=== PATIENT | female | born 1950 | race Caucasian/White ===

== ENCOUNTER 2016-11-13 19:08 | Outpatient (CLI) | payer MEDICARE, OTHER | END 2016-11-13 19:09 | disposition home or self-care (01) | DX: G47.33 Obstructive sleep apnea (adult) (pediatric) (principal); Z68.26 Body mass index [BMI] 26.0-26.9, adult ==

== ENCOUNTER 2016-11-29 10:29 | Outpatient (CLI) | payer MEDICARE, OTHER | END 2016-11-29 10:30 | disposition home or self-care (01) | DX: R91.8 Other nonspecific abnormal finding of lung field (principal); R06.02 Shortness of breath; R05 Cough; R09.89 Other specified symptoms and signs involving the circulatory and respiratory systems ==

== ENCOUNTER 2017-05-04 09:45 | Outpatient (CLI) | payer MEDICARE, OTHER | END 2017-05-04 09:46 | disposition home or self-care (01) | LOC: LAB.R 09:45 | PROVIDERS: ATTEND Physician Assistant Medical | DX: N30.00 Acute cystitis without hematuria (principal) | CPT/HCPCS: 87086 ==

== ENCOUNTER 2017-06-22 08:35 | Outpatient (CLI) | payer MEDICARE, OTHER ==
[2017-06-22 12:52] LABS: BASOPHILS % (AUTO) 0.2 %; EOSINOPHILS # (AUTO) 0.1 10^3/uL (0.0-0.7); EOSINOPHILS % (AUTO) 1.9 %; HCT - HEMATOCRIT 37.7 % (37.0-47.0); HGB - HEMOGLOBIN 12.9 g/dL (12.0-16.0); LYMPHOCYTES # (AUTO) 2.6 10^3/uL (1.5-3.5); LYMPHOCYTES % (AUTO) 50.9 %; MEAN CORPUSCULAR HEMOGLOBIN 29.9 pg (27.0-31.0); MEAN CORPUSCULAR HGB CONC 34.1 g/dL (32.0-36.0); MEAN CORPUSCULAR VOLUME 87.7 fL (81.0-99.0); MEAN PLATELET VOLUME 8.9 fL (7.9-10.8); MONOCYTES # (AUTO) 0.4 10^3/uL (0.0-1.0); MONOCYTES % (AUTO) 7.8 %; NEUTROPHILS % (AUTO) 39.2 %; NUCLEATED RED BLOOD CELLS AUTO 0.1 /100WBC; UNCORRECTED WHITE BLOOD COUNT 5.1 x10^3/uL; WHITE BLOOD COUNT 5.1 x10^3/uL (4.8-10.8)
[2017-06-22 13:03] LABS: ALBUMIN/GLOBULIN RATIO 1.2 (1.0-2.2); BILIRUBIN,TOTAL 0.5 mg/dL (0.2-1.0); BUN - BLOOD UREA NITROGEN 11 mg/dL (6-20); CALCIUM 9.1 mg/dL (8.5-10.3); CARBON DIOXIDE - CO2 26 mmol/L (21-32); CHLORIDE 106 mmol/L (101-111); CHOL/HDL RATIO 3.6 (<4.4); CHOLESTEROL 188 mg/dL; CREATININE 0.8 mg/dL (0.4-1.0); GFR - MDRD 72 (>89); GLUCOSE 114 mg/dL (70-100); HDL CHOLESTEROL 52 mg/dL; LDL/HDL RATIO 2.2 (<4.4); POTASSIUM 3.8 mmol/L (3.5-5.0); SODIUM 141 mmol/L (135-145); TOTAL PROTEIN 7.6 g/dL (6.7-8.2); TRIGLYCERIDES 105 mg/dL; VLDL CHOLESTEROL 21 mg/dL
== END 2017-06-22 08:36 | disposition home or self-care (01) ==
LOC: LAB.R 08:35
PROVIDERS: ATTEND Physician Assistant Medical
DX: E55.9 Vitamin D deficiency, unspecified (principal); K21.9 Gastro-esophageal reflux disease without esophagitis; F32.9 Major depressive disorder, single episode, unspecified; E03.9 Hypothyroidism, unspecified; Z11.59 Encounter for screening for other viral diseases; E78.5 Hyperlipidemia, unspecified; Z72.89 Other problems related to lifestyle; Z79.899 Other long term (current) drug therapy
CPT/HCPCS: 80053; 80061; 82306; 84443; 85025; 86803

== ENCOUNTER 2017-09-12 08:15 | Outpatient (CLI) | payer OTHER ==
[2017-09-12 08:59] LABS: BASOPHILS # (AUTO) 0.1 10^3/uL (0.0-0.1); BASOPHILS % (AUTO) 1.2 %; EOSINOPHILS # (AUTO) 0.1 10^3/uL (0.0-0.7); EOSINOPHILS % (AUTO) 1.8 %; HCT - HEMATOCRIT 37.9 % (37.0-47.0); HGB - HEMOGLOBIN 12.8 g/dL (12.0-16.0); LYMPHOCYTES # (AUTO) 2.4 10^3/uL (1.5-3.5); LYMPHOCYTES % (AUTO) 43.3 %; MEAN CORPUSCULAR HEMOGLOBIN 29.9 pg (27.0-31.0); MEAN CORPUSCULAR HGB CONC 33.7 g/dL (32.0-36.0); MEAN CORPUSCULAR VOLUME 88.6 fL (81.0-99.0); MEAN PLATELET VOLUME 8.1 fL (7.9-10.8); MONOCYTES # (AUTO) 0.5 10^3/uL (0.0-1.0); MONOCYTES % (AUTO) 8.2 %; NEUTROPHILS # (AUTO) 2.6 10^3/uL (1.5-6.6); NEUTROPHILS % (AUTO) 45.5 %; NUCLEATED RED BLOOD CELLS AUTO 0.1 /100WBC; RED BLOOD COUNT 4.28 10^6/uL (4.20-5.40); RED CELL DISTRIBUTION WIDTH 13.3 % (12.0-15.0); UNCORRECTED WHITE BLOOD COUNT 5.7 x10^3/uL; WHITE BLOOD COUNT 5.7 x10^3/uL (4.8-10.8)
[2017-09-12 10:56] LABS: FREE T3 3.11 pg/mL (2.5-3.9)
[2017-09-12 11:05] LABS: THYROID STIMULATING HORMONE 2.38 uIU/mL (0.34-5.60)
[2017-09-12 11:12] LABS: TOTAL T3 1.14 ng/mL (0.87-1.78)
[2017-09-13 11:41] LABS: HOMOCYSTEINE 12.4 umol/L (<10.4)
[2017-09-15 14:47] LABS: ANA SCREEN NEGATIVE (NEGATIVE)
== END 2017-09-12 08:16 | disposition home or self-care (01) ==
LOC: LAB 08:15
DX: F34.1 Dysthymic disorder (principal); Z44.9 Encounter for fitting and adjustment of unspecified external prosthetic device
CPT/HCPCS: 36415; 82306; 82607; 83090; 84403; 84439; 84443; 84480; 84481; 85025; 86038; 86140; 86376; 86800

== ENCOUNTER 2017-12-29 11:31 | Outpatient (CLI) | payer MEDICARE, OTHER ==
--- NOTE | 2018-01-01 10:17 | XRAY Report ---
THREE VIEW LUMBAR SPINE: 12/29/2017 CLINICAL INDICATION: Acute on chronic back pain. COMPARISON: 03/15/2013. FINDINGS: AP, lateral, cone-down views of the lumbar spine demonstrate stable height and alignment of the vertebral bodies. Previous lower lumbar fusion appears unchanged. There is no evidence of acute fracture or subluxation. The bowel gas pattern appears unremarkable. Spinal stimulator and catheter appear stable. IMPRESSION: STABLE APPEARANCE OF THE LUMBAR SPINE, WITH PREVIOUS FUSION. NO EVIDENCE OF ACUTE FRACTURE. TD: 12/29/2017 13:12 [facility]
== END 2017-12-29 11:32 | disposition home or self-care (01) ==
LOC: DI 11:31
PROVIDERS: ATTEND Physician Assistant Medical
DX: M54.5 Low back pain (principal); Z98.1 Arthrodesis status
CPT/HCPCS: 72100

== ENCOUNTER 2018-01-04 08:43 | Outpatient (CLI) | payer MEDICARE, OTHER ==
--- NOTE | 2018-01-05 10:55 | CT Report ---
LUMBAR SPINE CT: 01/04/2018 COMPARISON: No comparison. INDICATION: Lumbar chronic back pain. TECHNIQUE: Noncontrast axial imaging of the lumbar spine with coronal and sagittal reformats. FINDINGS: Spinal stimulator is noted. Alignment: Trace anterolisthesis of L4 upon L5 is favored to be degenerative. There is mild narrowing of the L4-L5 disk space. There is moderate narrowing of the L5-S1 disk space. No evidence of acute fracture. There are moderate degenerative changes of the facets. The bony neural foramina and spinal canal appear widely patent. Right mild to moderate lumbar spondylosis as detailed above. IMPRESSION: MILD TO MODERATE LUMBAR SPONDYLOSIS DETAILED ABOVE. CT DOSE REDUCTION STATEMENT In accordance with CT protocol optimization, one or more of the following dose reduction techniques were utilized for this exam: automated exposure control, adjustment of mA and/or KV based on patient size, or use of iterative reconstructive technique. TD: 01/04/2018 12:27 [facility]ENDRICK
== END 2018-01-04 08:44 | disposition home or self-care (01) ==
LOC: DI 08:43
PROVIDERS: ATTEND Physician Assistant Medical
DX: M47.896 Other spondylosis, lumbar region (principal)
CPT/HCPCS: 72131

== ENCOUNTER 2018-01-10 16:30 | Outpatient (CLI) | payer MEDICARE, OTHER ==
[2018-01-10 18:31] LABS: ALBUMIN 4.1 g/dL (3.2-5.5); ALBUMIN/GLOBULIN RATIO 1.2 (1.0-2.2); BILIRUBIN,TOTAL 0.3 mg/dL (0.2-1.0); CALCIUM 8.8 mg/dL (8.5-10.3); CREATININE 0.9 mg/dL (0.4-1.0); TOTAL PROTEIN 7.4 g/dL (6.7-8.2)
== END 2018-01-10 16:31 | disposition home or self-care (01) ==
LOC: LAB.R 16:30
PROVIDERS: ATTEND Physician Assistant Medical
DX: N39.0 Urinary tract infection, site not specified (principal); R30.0 Dysuria
CPT/HCPCS: 80053; 87086

== ENCOUNTER 2018-02-22 14:25 | Outpatient (CLI) | payer MEDICARE, OTHER ==
[2018-02-22 15:02] LABS: BASOPHILS # (AUTO) 0.1 10^3/uL (0.0-0.1); BASOPHILS % (AUTO) 0.8 %; EOSINOPHILS # (AUTO) 0.1 10^3/uL (0.0-0.7); EOSINOPHILS % (AUTO) 0.8 %; HGB - HEMOGLOBIN 13.9 g/dL (12.0-16.0); LYMPHOCYTES # (AUTO) 2.8 10^3/uL (1.5-3.5); LYMPHOCYTES % (AUTO) 38.5 %; MEAN CORPUSCULAR HEMOGLOBIN 29.8 pg (27.0-31.0); MEAN CORPUSCULAR HGB CONC 33.6 g/dL (32.0-36.0); MEAN CORPUSCULAR VOLUME 88.9 fL (81.0-99.0); MONOCYTES # (AUTO) 0.6 10^3/uL (0.0-1.0); MONOCYTES % (AUTO) 7.8 %; NEUTROPHILS # (AUTO) 3.7 10^3/uL (1.5-6.6); NEUTROPHILS % (AUTO) 52.1 %; PLT - PLATELET COUNT 272 10^3/uL (130-450); RED BLOOD COUNT 4.65 10^6/uL (4.20-5.40); RED CELL DISTRIBUTION WIDTH 13.1 % (12.0-15.0); WHITE BLOOD COUNT 7.2 x10^3/uL (4.8-10.8)
[2018-02-22 15:11] LABS: CALCIUM 9.1 mg/dL (8.5-10.3); CREATININE 0.7 mg/dL (0.4-1.0)
== END 2018-02-22 14:26 | disposition home or self-care (01) ==
LOC: LAB 14:25
PROVIDERS: ATTEND Physician Assistant Medical
DX: M79.89 Other specified soft tissue disorders (principal); M96.1 Postlaminectomy syndrome, not elsewhere classified
CPT/HCPCS: 36415; 80048; 83880; 85025; 85379; 87640

== ENCOUNTER 2018-06-05 19:49 | Outpatient (CLI) | payer MEDICARE, OTHER ==
[2018-06-05 19:09] LABS: BILIRUBIN,URINE NEGATIVE (NEGATIVE); GLUCOSE, URINE (UA) NEGATIVE (NEGATIVE); KETONES,URINE (UA) NEGATIVE (NEGATIVE); LEUKOCYTE ESTERASE, URINE NEGATIVE (NEGATIVE); NITRITE,URINE NEGATIVE (NEGATIVE); OCCULT BLOOD,URINE NEGATIVE (NEGATIVE); PH,URINE 6.5 PH (5.0-7.5); PROTEIN,URINE NEGATIVE (NEGATIVE); UROBILINOGEN,URINE 0.2 (NORMAL) E.U./dL (NORMAL)
[2018-06-05 19:17] LABS: BACTERIA,URINE None Seen /HPF (None Seen); CLARITY,URINE CLEAR (CLEAR); RBC,URINE None Seen /HPF (0-5); SQUAMOUS EPITHELIAL CELL,UR MOD Squamous (<= Few)
== END 2018-06-05 19:50 | disposition home or self-care (01) ==
LOC: LAB.R 19:49
PROVIDERS: ATTEND Obstetrics & Gynecology
DX: N89.8 Other specified noninflammatory disorders of vagina (principal); R30.0 Dysuria
CPT/HCPCS: 81001; 87480; 87510; 87660

== ENCOUNTER 2018-06-12 10:55 | Outpatient (CLI) | payer MEDICARE, OTHER ==
[2018-06-12 13:49] LABS: BASOPHILS % (AUTO) 0.2 %; EOSINOPHILS # (AUTO) 0.1 10^3/uL (0.0-0.7); EOSINOPHILS % (AUTO) 0.9 %; HGB - HEMOGLOBIN 14.1 g/dL (12.0-16.0); LYMPHOCYTES # (AUTO) 2.4 10^3/uL (1.5-3.5); LYMPHOCYTES % (AUTO) 45.3 %; MEAN CORPUSCULAR HEMOGLOBIN 30.3 pg (27.0-31.0); MEAN CORPUSCULAR HGB CONC 33.9 g/dL (32.0-36.0); MEAN CORPUSCULAR VOLUME 89.3 fL (81.0-99.0); MONOCYTES # (AUTO) 0.5 10^3/uL (0.0-1.0); MONOCYTES % (AUTO) 9.4 %; NEUTROPHILS # (AUTO) 2.4 10^3/uL (1.5-6.6); NEUTROPHILS % (AUTO) 44.2 %; PLT - PLATELET COUNT 266 10^3/uL (130-450); RED BLOOD COUNT 4.65 10^6/uL (4.20-5.40); RED CELL DISTRIBUTION WIDTH 13.2 % (12.0-15.0); WHITE BLOOD COUNT 5.4 x10^3/uL (4.8-10.8)
[2018-06-12 14:05] LABS: ALBUMIN 4.6 g/dL (3.2-5.5); ALBUMIN/GLOBULIN RATIO 1.3 (1.0-2.2); BILIRUBIN,TOTAL 0.7 mg/dL (0.2-1.0); CALCIUM 9.4 mg/dL (8.5-10.3); CREATININE 0.7 mg/dL (0.4-1.0); TOTAL PROTEIN 8.2 g/dL (6.7-8.2)
== END 2018-06-12 10:56 ==
LOC: LAB.R 10:55
PROVIDERS: ATTEND Physician Assistant Medical
DX: R03.0 Elevated blood-pressure reading, without diagnosis of hypertension (principal); E03.9 Hypothyroidism, unspecified
CPT/HCPCS: 80053; 84443; 85025

== ENCOUNTER 2018-06-26 05:17 | Outpatient (CLI) | payer MEDICARE, OTHER | END 2018-06-26 05:18 | disposition critical access hospital (66) | LOC: EMS 05:17 | PROVIDERS: ATTEND Surgery | DX: R10.13 Epigastric pain (principal); M54.9 Dorsalgia, unspecified ==

== ENCOUNTER 2018-06-26 05:29 | Emergency (ER) | payer MEDICARE, OTHER ==
--- NOTE | 2018-06-26 07:05 | ED Physician Documentation ---
PD HPI CHEST PAIN - Stated complaint Stated Complaint: EPIGASTRIC PAIN - Chief complaint Chief Complaint: Cardiac - History obtained from History obtained from: Patient - History of Present Illness Timing - onset: How many hours ago (few) Timing - onset during: Sleep (awoke with pain in chest/epigastric area, steady. Not changed with movement nor breathing. Has not eatn since onset.) Timing - duration: Hours Timing - details: Abrupt onset, Still present, Now resolved (improved from onset ) Quality: Pressure, Aching, Pain Location: Substernal, Epigastric Radiation: No: Jaw, Neck, Back Improved by: No: Rest Worsened by: No: Inspiration, Movement, Palpation Associated symptoms: Nausea. No: Shortness of air, Feeling faint / dizzy, General Weakness Similar symptoms before: Has not had sx before Recently seen: Not recently seen Review of Systems Constitutional: denies: Fever, Chills, Myalgias Nose: denies: Rhinorrhea / runny nose, Congestion Throat: denies: Sore throat Cardiac: denies: Palpitations, Pedal edema, Calf pain Respiratory: denies: Dyspnea GI: reports: Nausea. 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 : Chronic bladder infection HEENT: None Psych: Depression Musculoskeletal: Chronic back pain Derm: None - Past Surgical History Past Surgical History: Yes General: Appendectomy Ortho: Knee replacement /NETTING INSPECTOR: Hysterectomy HEENT: Tonsil/Adenoidectomy - Present Medications Home Medications: Ambulatory Orders Medication Instructions Recorded Confirmed Atorvastatin Calcium [Lipitor] 20 mg PO HS 05/03/13 08/25/14 Budesonide/Formoterol Fumarate 10.2 gm IH PRN 05/03/13 08/25/14 [Symbicort 160-4.5 Mcg Inhaler] Esomeprazole Magnesium [Nexium] 40 mg PO BID 05/03/13 08/25/14 Levothyroxine [Synthroid] 25 mcg PO QDAC 05/03/13 08/25/14 Montelukast [Singulair] 10 mg PO DAILY 05/03/13 08/25/14 Oxycodone HCl/Acetaminophen 1 each PO DAILY 05/03/13 08/25/14 [Percocet 10-325 mg Tablet] Propranolol [Inderal] 20 mg PO BID 05/03/13 08/25/14 traZODone [Desyrel] 50 mg PO HS 05/03/13 08/25/14 Estrogens, Conjugated [Premarin] 0.625 mg PO DAILY 08/25/14 08/25/14 Lidocaine Viscous 2% [Xylocaine 5 ml PO Q4H PRN #1 bottle 06/26/18 Viscous 2%] - Allergies Allergies/Adverse Reactions: Allergies Allergy/AdvReac Type Severity Reaction Status Date / Time acyclovir sodium * Allergy Severe lips Verified 08/25/14 16:35 [From Zovirax] swollen, face purple codeine [Codeine] Allergy Severe resp Verified 08/25/14 16:35 distress levofloxacin [From Levaquin] Allergy Severe skin Verified 08/25/14 16:35 peeled off Penicillins Allergy Severe throat Verified 08/25/14 16:35 swelling celecoxib [From Celebrex] Allergy Intermediate Rash Verified 08/25/14 16:35 cephalexin monohydrate * Allergy Intermediate Rash Verified 08/25/14 16:35 [From Keflex] hydrocodone [Hydrocodone] Allergy Intermediate Rash Verified 08/25/14 16:35 ciprofloxacin [From Cipro] Allergy Mild Rash Verified 08/25/14 16:35 ciprofloxacin HCl * Allergy Mild Rash Verified 08/25/14 16:35 [From Cipro] morphine AdvReac Headache Verified 08/25/14 16:35 - Social History Does the pt smoke?: No Smoking Status: Never smoker Does the pt drink ETOH?: No Does the pt have substance abuse?: No - Immunizations Immunizations are current?: Yes - POLST Patient has POLST: No PD ED PE NORMAL - Vitals Vital signs reviewed: Yes - General General: Alert and oriented X 3, No acute distress, Well developed/nourished - HEENT HEENT: Ears normal, Pharynx benign - Neck Neck: Supple, no meningeal sign, No adenopathy - Cardiac Cardiac: RRR, No murmur - Respiratory Respiratory: Clear bilaterally - Abdomen Abdomen: Normal bowel sounds, Soft, Non distended, No organomegaly, Other (some tender epigastric) - Female Female : Deferred - Rectal Rectal: Deferred - Back Back: No CVA TTP - Derm Derm: Normal color, Warm and dry - Extremities Extremities: No deformity, No tenderness to palpate, Normal ROM s pain, No edema , No calf tenderness / cord - Neuro Neuro: Alert and oriented X 3, No motor deficit, Normal speech Results - Vitals Vitals: Oxygen O2 Source Room air - EKG (time done) 07:01 Rate: Rate (enter#) (46) Rhythm: Sinus bradycardia Orient: Normal Intervals: Normal [place] QRS: Normal Ischemia: Normal ST segments. No: ST elevation c/w ischemia, ST depression - Labs Labs: Laboratory Tests 06/26/18 06/26/18 06/26/18 07:10 07:10 07:10 WBC 5.5 RBC 4.62 Hgb 14.2 Hct 41.4 MCV 89.8 MCH 30.7 MCHC 34.2 RDW 13.3 Plt Count 236 MPV 9.2 Neut # (Auto) 2.3 Lymph # (Auto) 2.5 [place] # (Auto) 0.5 Eos # (Auto) 0.1 Baso # (Auto) 0.1 Absolute Nucleated RBC 0.00 Nucleated RBC % 0.1 Sodium 141 Potassium 4.2 Chloride 105 Carbon Dioxide 29 Anion Gap 7.0 BUN 13 Creatinine 0.7 Estimated GFR (MDRD) 84 L Glucose 107 H Calcium 9.3 Total Bilirubin 0.6 AST 16 ALT 12 Alkaline Phosphatase 79 Troponin I < 0.04 Total Protein 7.5 Albumin 4.1 Globulin 3.4 Albumin/Globulin Ratio 1.2 Lipase 53 H - Rads (name of study) chest xray Radiology: Prelim report reviewed (normal) RUQ U/S Radiology: Prelim report reviewed (normal) PD MEDICAL DECISION MAKING - ED course Complexity details: reviewed results, re-evaluated patient (reasonably but not completely improved with GI cocktail, suggesting GI cause. ), considered differential, d/w patient - Sepsis Event Vital Signs: Oxygen O2 Source Room air Departure - Departure Disposition: 01 Home, Self Care Clinical Impression: Chest pain Qualifiers: Chest pain type: precordial pain Qualified Code(s): R07.2 - Precordial pain Condition: Stable Record reviewed to determine appropriate education?: Yes Instructions: ED Chest Pain Atypical Unkn Cause Follow-Up: Qing Montez PA-C [Primary Care Provider] - Prescriptions: Lidocaine Viscous 2% [Xylocaine Viscous 2%] 5 ml PO Q4H PRN #1 bottle PRN Reason: Pain Comments: No signs of heart or lung problems at this time. Your gallbladder looks normal as well. I presume this might possibly have been esophageal with spasm and that can result from reflux at times. There are no tests really to distinguish that. Continue usual medications. Consider adding antacid and lidocaine if needed for discomfort. Recheck if not improved over the next couple of days. Discharge Date/Time: 06/26/18 08:59
[2018-06-26 07:17] LABS: BASOPHILS # (AUTO) 0.1 10^3/uL (0.0-0.1); BASOPHILS % (AUTO) 0.9 %; EOSINOPHILS # (AUTO) 0.1 10^3/uL (0.0-0.7); EOSINOPHILS % (AUTO) 2.1 %; HGB - HEMOGLOBIN 14.2 g/dL (12.0-16.0); LYMPHOCYTES # (AUTO) 2.5 10^3/uL (1.5-3.5); MEAN CORPUSCULAR HEMOGLOBIN 30.7 pg (27.0-31.0); MEAN CORPUSCULAR HGB CONC 34.2 g/dL (32.0-36.0); MEAN CORPUSCULAR VOLUME 89.8 fL (81.0-99.0); MEAN PLATELET VOLUME 9.2 fL (7.9-10.8); MONOCYTES # (AUTO) 0.5 10^3/uL (0.0-1.0); MONOCYTES % (AUTO) 8.8 %; NEUTROPHILS # (AUTO) 2.3 10^3/uL (1.5-6.6); NEUTROPHILS % (AUTO) 42.2 %; PLT - PLATELET COUNT 236 10^3/uL (130-450); RED BLOOD COUNT 4.62 10^6/uL (4.20-5.40); RED CELL DISTRIBUTION WIDTH 13.3 % (12.0-15.0); WHITE BLOOD COUNT 5.5 x10^3/uL (4.8-10.8)
[2018-06-26 07:28] LABS: ALBUMIN 4.1 g/dL (3.2-5.5); ALBUMIN/GLOBULIN RATIO 1.2 (1.0-2.2); BILIRUBIN,TOTAL 0.6 mg/dL (0.2-1.0); CALCIUM 9.3 mg/dL (8.5-10.3); CREATININE 0.7 mg/dL (0.4-1.0); TOTAL PROTEIN 7.5 g/dL (6.7-8.2)
[2018-06-26] MEDS ORDERED: MAG HYDROX/AL HYDROX/SIMETH 30 ML UDC PO STA (07:30)
[2018-06-26] MEDS ORDERED: LIDOCAINE VISCOUS 2% 15 ML UDC MM STA (07:30)
--- NOTE | 2018-06-26 08:35 | Ultrasound Report ---
Reason: epigastric/low chest pain into back this morning Procedure Date: 06/26/2018 Accession Number: [id number] / [id number] Procedure: US - Abdomen Limited CPT Code: FULL RESULT: EXAM: ABDOMEN ULTRASOUND LIMITED, RUQ EXAM DATE: 06/26/2018 08:15 AM. CLINICAL HISTORY: Epigastric/low chest pain into back this morning. COMPARISON: No comparison ultrasound. CT abdomen pelvis 05/03/2013. TECHNIQUE: Real-time scanning was performed with static images obtained. FINDINGS: Exam is limited due to obscuring bowel gas. Imaging was largely limited to intercostal windows. Liver: The visualized liver is normal in size and echotexture. 17.5 cm. Main portal vein flow: Hepatopetal. Gallbladder: Normal. No stones, wall thickening, or sonographic Acosta's sign. Biliary System: CBD measures 4.9 mm. No intrahepatic or extrahepatic ductal dilatation. Other: The visualized portion of the right kidney is unremarkable. IMPRESSION: Normal. No cholelithiasis or cholecystitis. [facility]
[2018-06-26 08:41] VITALS: BP 140/66
--- NOTE | 2018-06-26 09:12 | XRAY Report ---
Reason: chest and upper back discomfort Procedure Date: 06/26/2018 Accession Number: [id number] / [id number] Procedure: XR - Chest 2 View X-Ray CPT Code: 38767 FULL RESULT: EXAM: CHEST RADIOGRAPHY EXAM DATE: 06/26/2018 08:38 AM. CLINICAL HISTORY: Chest and upper back discomfort. COMPARISON: 11/29/2016, 01/01/2015 and 08/25/2014. TECHNIQUE: 2 views. FINDINGS: Lungs/Pleura: There is at least one very small nodule at the lateral right upper lobe apical region between the anterolateral second third ribs, not definitely present previously. Otherwise, no focal pulmonary opacities. No pleural effusion. No pneumothorax. Mediastinum: Heart and mediastinal contours are unremarkable. Other: Neurostimulator leads are without change with tips projecting to the T6 and T6-T7 levels. Left abdominal upper quadrant surgical clips, without change. IMPRESSION: 1. Possible new small right upper lobe nodule. CT imaging could be performed for further evaluation. 2. Otherwise, no acute abnormalities just. [facility]
== END 2018-06-26 08:59 | disposition home or self-care (01) ==
LOC: EDUNIT# → SUPCPDRO 05:29 → ED 05:29
DX: R07.2 Precordial pain (principal); J44.9 Chronic obstructive pulmonary disease, unspecified
CPT/HCPCS: 36415; 71046; 76705; 80053; 83690; 84484; 85025; 93005; 99283; A9270

== ENCOUNTER 2018-07-02 14:39 | Outpatient (CLI) | payer MEDICARE, OTHER ==
--- NOTE | 2018-07-02 15:56 | CT Report ---
Reason: CHEST XRAY,ABNORMAL Procedure Date: 07/02/2018 Accession Number: [id number] / [id number] Procedure: CT - Chest W/O CPT Code: FULL RESULT: EXAM: CT CHEST EXAM DATE: 07/02/2018 02:42 PM. CLINICAL HISTORY: CHEST XRAY,ABNORMAL. COMPARISONS: Chest 06/26/2018. TECHNIQUE: Routine helical CT imaging was performed through the chest. IV contrast: None. Reconstructions: Coronal and sagittal. Coronal MIP. In accordance with CT protocol optimization, one or more of the following dose reduction techniques were utilized for this exam: automated exposure control, adjustment of mA and/or KV based on patient size, or use of iterative reconstructive technique. FINDINGS: Spinal stimulator is noted. Lungs/Pleura: Despite the plain film findings, no pulmonary nodules are seen about the right upper lung that would correspond. The plain film findings are therefore favored to be artifactual. There is a 2 mm solid nodule of the anterior left midlung series 4 image 25. Mediastinum: No adenopathy or masses. There are atherosclerotic ossifications of the thoracic aorta and coronary arteries. The heart and great vessels appear otherwise normal. Bones: No bone lesions. Visualized Abdomen: An 8 mm low attenuating focus in the inferior right lobe of the liver is too small to characterize. Left retroperitoneal clips are noted. Other: None. IMPRESSION: There are no right pulmonary nodules, despite the questionable plain film findings. Those findings were likely artifactual. There is a solid 2 mm nodule of the left midlung. No follow-up is needed in a low risk patient. In a high-risk patient optional CT at 12 months. [facility]
== END 2018-07-02 14:40 | disposition home or self-care (01) ==
LOC: DI 14:39
PROVIDERS: ATTEND Physician Assistant Medical
DX: R91.8 Other nonspecific abnormal finding of lung field (principal); R91.1 Solitary pulmonary nodule
CPT/HCPCS: 71250

== ENCOUNTER 2018-07-12 08:29 | Outpatient (CLI) | payer MEDICARE, OTHER ==
[2018-07-12 14:11] LABS: CHOL/HDL RATIO 5.8 (<4.4); CHOLESTEROL 265 mg/dL; HDL CHOLESTEROL 46 mg/dL; LDL CHOLESTEROL,CALCULATED 200 mg/dL; LDL/HDL RATIO 4.3 (<4.4); VLDL CHOLESTEROL 19 mg/dL
[2018-07-12 14:55] LABS: HB2 TOTAL 14.2 g/dL; HEMOGLOBIN A1C 0.55 g/dL; HEMOGLOBIN A1C % 5.7 % (4.6-6.2)
== END 2018-07-12 08:30 | disposition home or self-care (01) ==
LOC: LAB.R 08:29
PROVIDERS: ATTEND Physician Assistant Medical
DX: E55.9 Vitamin D deficiency, unspecified (principal); Z79.899 Other long term (current) drug therapy; R73.9 Hyperglycemia, unspecified; E78.2 Mixed hyperlipidemia
CPT/HCPCS: 80061; 82306; 83036; 83721

== ENCOUNTER 2018-08-01 09:58 | Outpatient (CLI) | payer MEDICARE, OTHER ==
--- NOTE | 2018-08-02 11:30 | DEXA Report ---
Reason: POST MENOPAUSAL,SCREENING MAMMO Procedure Date: 08/01/2018 Accession Number: [id number] / [id number] Procedure: DEX - Dexa Spine and/or Hip CPT Code: FULL RESULT: EXAM: Dexa Forearm, Dexa Spine and/or Hip DATE: 08/01/2018 10:35 AM CLINICAL HISTORY: MULTIPLE SPINE SURGERIES TECHNIQUE: Dual energy x-ray absorptiometry (DXA) was performed on a CardioFocus System. Regions measured are the AP Spine, femoral neck, and if needed forearm. COMPARISON: None. In accordance with the International Society for Clinical Densitometry (ISCD) guidelines, data from previous exams may be reanalyzed using current recommendations and techniques. This is done to allow a more accurate basis for comparison with the current study. FINDINGS: The data for the lumbar spine is as follows: The data for the hip is as follows: BMD (g/cm/cm) T-SCORE Z-SCORE REGION Neck 1.011 -0.2 1.1 TOTAL 1.023 0.1 1.1 NOTE: The femoral neck or total proximal femur, whichever is lowest, is used for classification. The data for the Left forearm is as follows: BMD (g/cm/cm) T-SCORE Z-SCORE REGION 1/3 0.897 0.2 1.7 NOTE: The 33% radius of the nondominant forearm is used for classification. IMPRESSION: THE WHO CLASSIFICATION BASED ON THE INTERNATIONAL REFERENCE STANDARD IS NORMAL. THE FRACTURE RISK IS NOT INCREASED. RECOMMENDATION: Patients with diagnosis of osteoporosis or osteopenia should have regular bone mineral density assessment. For those eligible for Medicare, routine testing is allowed once every 2 years. Testing frequency can be increased for patients who have rapidly progressing disease or for those who are receiving medical therapy to restore bone mass. COMMENT: World Health Organization (WHO) definitions for osteoporosis and osteopenia: NORMAL BMD: T-score at -1.0 or higher, fracture risk is low OSTEOPENIA BMD: T-score between -1.0 and -2.5, fracture risk is increased. OSTEOPOROSIS BMD: T-score at -2.5 or lower, fracture risk is high. National Osteoporosis Foundation recommends: 1. Obtain adequate dietary calcium (at least 1200 mg per day) and vitamin D (400-800 international units per day). 2. Participate, as appropriate, in regular weightbearing and muscle-strengthening exercise. 3. Avoid tobacco use and reduce alcohol and caffeine intake. 4. For more detailed information see the website at www.NOF.org.
--- NOTE | 2018-08-02 11:30 | DEXA Report ---
Reason: MULTIPLE SPINE SURGERIES Procedure Date: 08/01/2018 Accession Number: [id number] / [id number] Procedure: DEX - Dexa Forearm CPT Code: FULL RESULT: EXAM: Dexa Forearm, Dexa Spine and/or Hip DATE: 08/01/2018 10:35 AM CLINICAL HISTORY: MULTIPLE SPINE SURGERIES TECHNIQUE: Dual energy x-ray absorptiometry (DXA) was performed on a [employer] System. Regions measured are the AP Spine, femoral neck, and if needed forearm. COMPARISON: None. In accordance with the International Society for Clinical Densitometry (ISCD) guidelines, data from previous exams may be reanalyzed using current recommendations and techniques. This is done to allow a more accurate basis for comparison with the current study. FINDINGS: The data for the lumbar spine is as follows: The data for the hip is as follows: BMD (g/cm/cm) T-SCORE Z-SCORE REGION Neck 1.011 -0.2 1.1 TOTAL 1.023 0.1 1.1 NOTE: The femoral neck or total proximal femur, whichever is lowest, is used for classification. The data for the Left forearm is as follows: BMD (g/cm/cm) T-SCORE Z-SCORE REGION 1/3 0.897 0.2 1.7 NOTE: The 33% radius of the nondominant forearm is used for classification. IMPRESSION: THE WHO CLASSIFICATION BASED ON THE INTERNATIONAL REFERENCE STANDARD IS NORMAL. THE FRACTURE RISK IS NOT INCREASED. RECOMMENDATION: Patients with diagnosis of osteoporosis or osteopenia should have regular bone mineral density assessment. For those eligible for Medicare, routine testing is allowed once every 2 years. Testing frequency can be increased for patients who have rapidly progressing disease or for those who are receiving medical therapy to restore bone mass. COMMENT: World Health Organization (WHO) definitions for osteoporosis and osteopenia: NORMAL BMD: T-score at -1.0 or higher, fracture risk is low OSTEOPENIA BMD: T-score between -1.0 and -2.5, fracture risk is increased. OSTEOPOROSIS BMD: T-score at -2.5 or lower, fracture risk is high. National Osteoporosis Foundation recommends: 1. Obtain adequate dietary calcium (at least 1200 mg per day) and vitamin D (400-800 international units per day). 2. Participate, as appropriate, in regular weightbearing and muscle-strengthening exercise. 3. Avoid tobacco use and reduce alcohol and caffeine intake. 4. For more detailed information see the website at www.NOF.org.
== END 2018-08-01 09:59 | disposition home or self-care (01) ==
LOC: DI 09:58
PROVIDERS: ATTEND Physician Assistant Medical
DX: Z78.0 Asymptomatic menopausal state (principal)
CPT/HCPCS: 77080; 77081

== ENCOUNTER 2018-08-01 09:59 | Outpatient (CLI) | payer MEDICARE, OTHER ==
--- NOTE | 2018-08-02 09:36 | Mammography Report ---
Reason: SCREENING MAMMO Procedure Date: 08/01/2018 Accession Number: [id number] / [id number] Procedure: [facility]ENN[facility]ER - Screening Mammo Dig Bilat CPT Code: FULL RESULT: EXAM: Screening Mammo Dig Bilat DATE: 08/01/2018 10:58 AM CLINICAL HISTORY: 68-year-old female presents for screening mammogram. TECHNIQUE: Bilateral CC and MLO views were obtained. COMPARISON: 07/04/2016, 06/26/2015, 09/05/2013, 07/26/2011. FINDINGS: The breasts demonstrate scattered fibroglandular densities bilaterally. Typically benign vascular calcifications as well as typically benign coarse calcifications are again seen bilaterally. A partially obscured hyperdense focal asymmetry is seen in the left breast approximately 5.5 cm deep to the nipple at the 7:00 position in the inferomedial left breast. Spot magnification views and ideally 3-D views as well as ultrasound of the left breast focal asymmetry are required. No suspicious calcifications, architectural distortion or mass is seen in the right breast. IMPRESSION: Incomplete examination RECOMMENDATION: Additional evaluation as above. BIRADS CATEGORY 0: Incomplete examination STANDARD QUALIFYING STATEMENTS: 1. This examination was not reviewed with the aid of Computer-Aided Detection (CAD). 2. A negative or benign imaging report should not delay biopsy if clinically suspicious findings are present. Consider surgical consultation if warrented. More than 5% of cancers are not identified by imaging. 3. Dense breasts may obscure an underlying neoplasm. 4. This examination was reviewed without the aid of 3D breast imaging (tomosynthesis).
== END 2018-08-01 10:00 | disposition home or self-care (01) ==
LOC: DI 09:59
PROVIDERS: ATTEND Physician Assistant Medical
DX: Z12.31 Encounter for screening mammogram for malignant neoplasm of breast (principal)
CPT/HCPCS: 77067

== ENCOUNTER 2018-08-24 09:24 | Outpatient (CLI) | payer MEDICARE, OTHER ==
--- NOTE | 2018-08-24 15:25 | Mammography Report ---
Reason: ABN MAMMO - LT SPEC VIEWS Procedure Date: 08/24/2018 Accession Number: [id number] / [id number] Procedure: [facility]ENN[facility]ER - Diag Special Views Dig LT CPT Code: FULL RESULT: EXAM: Diag Special Views Dig LT DATE: 08/24/2018 11:08 AM CLINICAL HISTORY: 68-year-old female recalled from screening mammogram for a left breast focal asymmetry. TECHNIQUE: Left CC and MLO views in 2-D and 3-D technique are obtained as well as left spot CC imaging. COMPARISON: 08/01/2018, 07/04/2016, 06/26/2015, 09/05/2013. FINDINGS: The breasts demonstrate scattered fibroglandular densities bilaterally. The previously seen focal asymmetry is identified as a 1 cm well-circumscribed hypodense mass in the left breast at the 7:00 position approximately 5 cm from the nipple. Ultrasound examination reveals a septated wider than tall cyst with thin stewart and well demarcated margin. IMPRESSION: Probable benign findings RECOMMENDATION: Recommend diagnostic left breast ultrasound in 6 months. BIRADS CATEGORY 3 STANDARD QUALIFYING STATEMENTS: 1. This examination was not reviewed with the aid of Computer-Aided Detection (CAD). 2. A negative or benign imaging report should not delay biopsy if clinically suspicious findings are present. Consider surgical consultation if warrented. More than 5% of cancers are not identified by imaging. 3. Dense breasts may obscure an underlying neoplasm. 4. This examination was reviewed with the aid of 3D imaging (tomography).
== END 2018-08-24 09:25 | disposition home or self-care (01) ==
LOC: DI 09:24
PROVIDERS: ATTEND Physician Assistant Medical
DX: R92.2 Inconclusive mammogram (principal)
CPT/HCPCS: 76642

== ENCOUNTER 2018-09-06 09:17 | Outpatient (CLI) | payer MEDICARE, OTHER ==
[2018-09-06 20:45] LABS: ALT ALANINE AMINOTRANSFERASE 11 IU/L (10-60); AST ASPARTATE AMINOTRANSFERASE 15 IU/L (10-42); LDL CHOLESTEROL,DIRECT 103 mg/dL
== END 2018-09-06 09:18 ==
LOC: LAB.R 09:17
PROVIDERS: ATTEND Physician Assistant Medical
DX: E78.2 Mixed hyperlipidemia (principal); Z79.899 Other long term (current) drug therapy
CPT/HCPCS: 83721; 84450; 84460

== ENCOUNTER 2018-11-23 08:00 | Outpatient (CLI) | payer MEDICARE, OTHER | END 2018-11-23 23:59 | disposition home or self-care (01) | LOC: LAB.R 08:00 | PROVIDERS: ATTEND Internal Medicine | DX: R50.9 Fever, unspecified (principal) | CPT/HCPCS: 87275; 87276 ==

== ENCOUNTER 2018-12-18 16:34 | Outpatient (CLI) | payer MEDICARE, OTHER | END 2018-12-18 23:59 | disposition home or self-care (01) | LOC: LAB.R 16:34 | PROVIDERS: ATTEND Obstetrics & Gynecology | DX: N89.8 Other specified noninflammatory disorders of vagina (principal) | CPT/HCPCS: 87480; 87510; 87660 ==

== ENCOUNTER 2019-02-06 12:27 | Outpatient (CLI) | payer MEDICARE, OTHER ==
[2019-02-06 12:56] LABS: CREATININE 0.7 mg/dL (0.4-1.0)
[2019-02-06] MEDS ORDERED: IOVERSOL 320 100 ML VIAL IVP ONE ×2 (13:00→15:17)
[2019-02-06] MEDS ORDERED: BUPIVACAINE 0.5%-EPI 1:200000 PF 10 ML VIAL ONE (13:13)
[2019-02-06] MEDS ORDERED: BUFFERED LIDOCAINE 10 ML SYRINGE ONE (13:13)
--- NOTE | 2019-02-06 15:34 | CT Report ---
Reason: CT OF LUNG LESION Procedure Date: 02/06/2019 Accession Number: [id number] / [id number] Procedure: CT - CHEST W CPT Code: FULL RESULT: EXAM: CT CHEST EXAM DATE: 02/06/2019 02:43 PM. CLINICAL HISTORY: Follow-up possible lung nodule on chest x-ray. COMPARISONS: CHEST W/O 07/02/2018 2:52 PM. TECHNIQUE: Routine helical CT imaging was performed through the chest. IV contrast: None. Reconstructions: Coronal and sagittal. In accordance with CT protocol optimization, one or more of the following dose reduction techniques were utilized for this exam: automated exposure control, adjustment of mA and/or KV based on patient size, or use of iterative reconstructive technique. FINDINGS: Lungs/Pleura: No suspicious lung mass. There is redemonstration of 2 mm subpleural left anterior upper lobe pulmonary nodule of no clinical significance which is seen on image 23 series 4. The lungs are otherwise clear. No pleural effusions or mass. Mediastinum: Normal. No adenopathy or masses. The heart and great vessels are normal. Bones: Unremarkable. Visualized Abdomen: Unremarkable. Other: None. IMPRESSION: 1. Negative examination. 2. No change in 2 mm diameter subpleural anterior left upper lobe pulmonary nodule which requires no further follow-up as per Wen Society guidelines. [facility]
== END 2019-02-06 12:28 | disposition home or self-care (01) ==
LOC: LAB 12:27 → DI 12:28
PROVIDERS: ATTEND Surgery
DX: R91.1 Solitary pulmonary nodule (principal); N60.02 Solitary cyst of left breast; R92.8 Other abnormal and inconclusive findings on diagnostic imaging of breast; N64.59 Other signs and symptoms in breast
CPT/HCPCS: 19000; 36415; 71260; 77065; 82565; Q9967

== ENCOUNTER 2019-02-06 12:42 | Outpatient (CLI) | payer MEDICARE, OTHER ==
[2019-02-06] MEDS ORDERED: BUFFERED LIDOCAINE 10 ML SYRINGE IU ONE (15:59)
[2019-02-06] MEDS ORDERED: BUPIVACAINE 0.5%-EPI 1:200000 PF 10 ML VIAL SUBQ ONE (16:02)
--- NOTE | 2019-02-06 16:08 | Mammography Report ---
Reason: LT BREAST LESION Procedure Date: 02/06/2019 Accession Number: [id number] / [id number] Procedure: [facility]ENN[facility]ER - Diagnostic Dig LT CPT Code: FULL RESULT: EXAM: Diagnostic Dig LT DATE: 02/06/2019 2:13 PM CLINICAL HISTORY: This is an approximate 6 month follow-up focal breast asymmetry inferior left breast, middle one third. TECHNIQUE: (L) - Left. CC and MLO views were obtained. COMPARISON: 08/24/2018 PARENCHYMAL PATTERN: (A) - The breasts demonstrate scattered fibroglandular densities bilaterally. FINDINGS: There are no suspicious masses, calcifications, or areas of distortion. The previously described focal breast asymmetry is no longer present. IMPRESSION: Negative examination. BI-RADS category 1. RECOMMENDATION: (ANNUAL) - Recommend routine annual screening mammography. BI-RADS CATEGORY: (1) - Negative. STANDARD QUALIFYING STATEMENTS: 1. This examination was not reviewed with the aid of Computer-Aided Detection (CAD). 2. A negative or benign imaging report should not preclude biopsy if clinically suspicious findings are present. 3. Dense breasts may obscure an underlying neoplasm. 4. This examination was reviewed without the aid of 3D breast imaging (tomosynthesis).
--- NOTE | 2019-02-06 16:40 | Ultrasound Report ---
Reason: L BREAST LESION - BIRADS 3 Procedure Date: 02/06/2019 Accession Number: [id number] / [id number] Procedure: US - Breast Punct Asp Cyst LT CPT Code: FULL RESULT: EXAM: Breast Puncta Asp Cyst LT DATE: 02/06/2019 2:00 PM CLINICAL HISTORY: Local breast asymmetry inferior left breast on 08/24/2018 mammogram and targeted ultrasound. TECHNIQUE: Informed consent was obtained. Using sterile technique and local anesthetic, an 18-gauge needle was placed into the small hypoechoic lesion with real-time ultrasound guidance. The cyst was entirely aspirated with a small amount of fluid sent for cytology. The cyst disappeared. A postaspiration marker clip was placed. A unilateral postaspiration mammogram will be performed. See that separate report. Postaspiration marker clip is concordant with imaging. COMPARISON: 08/24/2018 FINDINGS: The cyst in the inferior anterior left breast was completely decompressed by aspiration. IMPRESSION: Uneventful procedure. Category 2: Benign findings. Recommend annual screening mammographic follow-up.
== END 2019-02-06 12:43 | disposition home or self-care (01) ==
LOC: DI 12:42
PROVIDERS: ATTEND Surgery
DX: N60.02 Solitary cyst of left breast (principal); R92.8 Other abnormal and inconclusive findings on diagnostic imaging of breast; N64.59 Other signs and symptoms in breast
CPT/HCPCS: 19000

== ENCOUNTER 2019-09-25 08:15 | Outpatient (CLI) | payer MEDICARE, OTHER ==
--- NOTE | 2019-09-25 12:21 | Mammography Report ---
Reason: ANNUAL SCREENING Procedure Date: 09/25/2019 Accession Number: [id number] / [id number] Procedure: JENNIFER - Screening Mammo w/Yo CPT Code: Final Report FULL RESULT: EXAM: Screening Mammo w/Yo DATE: 09/25/2019 9:18 AM CLINICAL HISTORY: The patient is an asymptomatic 69-year-old female. No reported personal nor family history of breast cancer. TECHNIQUE: (B) - Bilateral CC and MLO views were obtained. COMPARISON: None 08/01/2018, 07/04/2016, 06/26/2015, 09/05/2013, 01/24/2011 PARENCHYMAL PATTERN: (A) - The breasts demonstrate scattered fibroglandular densities bilaterally. FINDINGS: RIGHT BREAST: There may be developing focal asymmetry in the lateral position; reference 3-D slice 18 (CC view). This may be glandular tissue accentuated by progressive involution. Recommend targeted diagnostic evaluation. The remainder the parenchymal pattern is unremarkable. LEFT BREAST: There are no suspicious masses, calcifications, or areas of distortion. IMPRESSION: RIGHT BREAST: Incomplete examination. BI-RADS Category 0 LEFT BREAST: Negative examination. BI-RADS category 1. RECOMMENDATION: Recommend targeted mammographic views and ultrasound, if warranted. BI-RADS CATEGORY: (0) - Incomplete Examination - need additional evaluation. STANDARD QUALIFYING STATEMENTS: 1. This examination was not reviewed with the aid of Computer-Aided Detection (CAD). 2. A negative or benign imaging report should not preclude biopsy if clinically suspicious findings are present. 3. Dense breasts may obscure an underlying neoplasm. 4. This examination was reviewed with the aid of 3D breast imaging (tomosynthesis).
== END 2019-09-25 08:16 | disposition home or self-care (01) ==
LOC: DI 08:15
PROVIDERS: ATTEND Surgery
DX: Z12.31 Encounter for screening mammogram for malignant neoplasm of breast (principal); R92.8 Other abnormal and inconclusive findings on diagnostic imaging of breast
CPT/HCPCS: 77063; 77067

== ENCOUNTER 2019-09-25 09:16 | Outpatient (CLI) | payer MEDICARE, OTHER ==
[2019-09-25 09:43] LABS: BASOPHILS # (AUTO) 0.1 10^3/uL (0.0-0.1); EOSINOPHILS # (AUTO) 0.1 10^3/uL (0.0-0.7); EOSINOPHILS % (AUTO) 1.4 %; HGB - HEMOGLOBIN 13.2 g/dL (12.0-16.0); LYMPHOCYTES # (AUTO) 2.6 10^3/uL (1.5-3.5); LYMPHOCYTES % (AUTO) 41.3 %; MEAN CORPUSCULAR HEMOGLOBIN 29.3 pg (27.0-31.0); MEAN CORPUSCULAR HGB CONC 30.9 g/dL (32.0-36.0); MEAN CORPUSCULAR VOLUME 94.9 fL (81.0-99.0); MEAN PLATELET VOLUME 10.4 fL (7.9-10.8); MONOCYTES # (AUTO) 0.5 10^3/uL (0.0-1.0); MONOCYTES % (AUTO) 8.6 %; NEUTROPHILS % (AUTO) 47.5 %; PLT - PLATELET COUNT 238 10^3/uL (130-450); RED CELL DISTRIBUTION WIDTH 12.2 % (12.0-15.0); WHITE BLOOD COUNT 6.3 x10^3/uL (4.8-10.8)
[2019-09-25 10:05] LABS: ALBUMIN 4.5 g/dL (3.2-5.5); ALBUMIN/GLOBULIN RATIO 1.1 (1.0-2.2); ALKALINE PHOSPHATASE 83 IU/L (42-121); ALT ALANINE AMINOTRANSFERASE 11 IU/L (10-60); AST ASPARTATE AMINOTRANSFERASE 15 IU/L (10-42); BILIRUBIN,TOTAL 0.6 mg/dL (0.2-1.0); BUN - BLOOD UREA NITROGEN 17 mg/dL (6-20); CALCIUM 9.2 mg/dL (8.5-10.3); CARBON DIOXIDE - CO2 29 mmol/L (21-32); CHLORIDE 104 mmol/L (101-111); CHOLESTEROL 205 mg/dL; CREATININE 0.9 mg/dL (0.4-1.0); GFR - MDRD 62 (>89); GLUCOSE 103 mg/dL (70-100); HDL CHOLESTEROL 51 mg/dL; LDL CHOLESTEROL,CALCULATED 127 mg/dL; LDL/HDL RATIO 2.5 (<4.4); SODIUM 141 mmol/L (135-145); TOTAL PROTEIN 8.5 g/dL (6.7-8.2); VLDL CHOLESTEROL 27 mg/dL
[2019-09-25 10:51] LABS: THYROID STIMULATING HORMONE 1.77 uIU/mL (0.34-5.60)
[2019-09-25 10:53] LABS: FREE T4 (FREE THYROXINE) 1.05 ng/dL (0.58-1.64)
== END 2019-09-25 09:17 | disposition home or self-care (01) ==
LOC: LAB 09:16
PROVIDERS: ATTEND Family Medicine
DX: E03.9 Hypothyroidism, unspecified (principal); Z63.8 Other specified problems related to primary support group; G47.09 Other insomnia; Z78.0 Asymptomatic menopausal state; G89.29 Other chronic pain; M54.5 Low back pain; R73.9 Hyperglycemia, unspecified; G47.33 Obstructive sleep apnea (adult) (pediatric); G25.0 Essential tremor; J44.9 Chronic obstructive pulmonary disease, unspecified; K21.9 Gastro-esophageal reflux disease without esophagitis; F32.9 Major depressive disorder, single episode, unspecified; E55.9 Vitamin D deficiency, unspecified
CPT/HCPCS: 36415; 80053; 80061; 83721; 84439; 84443; 84481; 85025

== ENCOUNTER 2019-09-30 08:00 | Outpatient (CLI) | payer MEDICARE, OTHER | END 2019-09-30 23:59 | disposition home or self-care (01) | LOC: LAB.R 08:00 | PROVIDERS: ATTEND Family Medicine | DX: N39.0 Urinary tract infection, site not specified (principal); Z87.440 Personal history of urinary (tract) infections | CPT/HCPCS: 87086; 87181 ==

== ENCOUNTER 2019-10-31 12:39 | Outpatient (CLI) | payer MEDICARE, OTHER ==
--- NOTE | 2019-10-31 16:17 | Mammography Report ---
Reason: ABNORMAL MAMMOGRAM Procedure Date: 10/31/2019 Accession Number: [id number] / [id number] Procedure: JENNIFER - Diag Special Views Dig RT CPT Code: Final Report FULL RESULT: EXAM: Breast Unilateral Limited, Diag Special Views Dig RT DATE: 10/31/2019 3:07 PM CLINICAL HISTORY: The patient is an asymptomatic 69-year-old female recalled from screening mammogram (09/25/2019) for diagnostic evaluation of the right breast. MAMMOGRAM TECHNIQUE: (Right breast diagnostic views. COMPARISON: 09/25/2019, 08/01/2018 07/04/2016, 06/26/2015 MAMMOGRAM FINDINGS: PARENCHYMAL PATTERN: There are scattered fibroglandular densities. The described circumscribed focal asymmetry persists in the anterior, slightly lateral position. There are no mammographically suspicious features. ULTRASOUND TECHNIQUE: A high frequency transducer was utilized to evaluate the area of concern in the anterior right breast. Slicing Machine Tender static images obtained. FINDINGS: There is an avascular 8 mm simple cyst in the 6 to 7:00 position approximately 2 cm from the nipple. This corresponds to the mammographic finding. No solid mass, distortion or focal hyperemia. There are no sonographically suspicious findings. IMPRESSION: Benign findings. BI-RADS category 2. RECOMMENDATION: (ANNUAL) - Recommend routine annual screening mammography. BI-RADS CATEGORY: (2) - Benign Findings. STANDARD QUALIFYING STATEMENTS: A negative or benign imaging report should not preclude biopsy if clinically suspicious findings are present. Dense breasts may obscure an underlying neoplasm. This examination was reviewed the aid of 3D breast imaging (tomosynthesis).
== END 2019-10-31 12:40 | disposition home or self-care (01) ==
LOC: DI 12:39
PROVIDERS: ATTEND Family Medicine
DX: N60.01 Solitary cyst of right breast (principal)
CPT/HCPCS: 76642

== ENCOUNTER 2020-01-23 08:00 | Outpatient (CLI) | payer MEDICARE, OTHER | END 2020-01-23 23:59 | disposition home or self-care (01) | LOC: LAB.WCP 08:00 | PROVIDERS: ATTEND Family Medicine | DX: Z53.9 Procedure and treatment not carried out, unspecified reason (principal) ==

== ENCOUNTER 2020-01-23 14:25 | Outpatient (CLI) | payer MEDICARE, OTHER ==
[2020-01-23 16:45] LABS: BASOPHILS # (AUTO) 0.1 10^3/uL (0.0-0.1); BASOPHILS % (AUTO) 0.6 %; EOSINOPHILS % (AUTO) 0.1 %; HGB - HEMOGLOBIN 13.9 g/dL (12.0-16.0); LYMPHOCYTES # (AUTO) 1.6 10^3/uL (1.5-3.5); LYMPHOCYTES % (AUTO) 19.5 %; MEAN CORPUSCULAR HEMOGLOBIN 30.4 pg (27.0-31.0); MEAN CORPUSCULAR HGB CONC 30.8 g/dL (32.0-36.0); MEAN CORPUSCULAR VOLUME 98.7 fL (81.0-99.0); MEAN PLATELET VOLUME 10.6 fL (7.9-10.8); MONOCYTES # (AUTO) 0.4 10^3/uL (0.0-1.0); MONOCYTES % (AUTO) 4.4 %; NEUTROPHILS # (AUTO) 6.3 10^3/uL (1.5-6.6); PLT - PLATELET COUNT 237 10^3/uL (130-450); RED BLOOD COUNT 4.57 10^6/uL (4.20-5.40); RED CELL DISTRIBUTION WIDTH 12.9 % (12.0-15.0); WHITE BLOOD COUNT 8.4 x10^3/uL (4.8-10.8)
[2020-01-23 17:26] LABS: ALBUMIN 4.2 g/dL (3.2-5.5); ALBUMIN/GLOBULIN RATIO 1.2 (1.0-2.2); BILIRUBIN,TOTAL 0.7 mg/dL (0.2-1.0); CALCIUM 8.5 mg/dL (8.5-10.3); CREATININE 0.5 mg/dL (0.4-1.0); TOTAL PROTEIN 7.8 g/dL (6.7-8.2)
== END 2020-01-23 23:59 | disposition home or self-care (01) ==
LOC: LAB.WCP 14:25
PROVIDERS: ATTEND Family Medicine
DX: K52.9 Noninfective gastroenteritis and colitis, unspecified (principal); R11.2 Nausea with vomiting, unspecified
CPT/HCPCS: 36415; 80053; 82150; 83690; 85025

== ENCOUNTER 2020-02-26 08:45 | Outpatient (CLI) | payer MEDICARE, OTHER | END 2020-02-26 23:59 | disposition home or self-care (01) | LOC: LAB.WCP 08:45 | PROVIDERS: ATTEND Family Medicine | DX: R30.0 Dysuria (principal) | CPT/HCPCS: 87086 ==

== ENCOUNTER 2020-04-08 14:13 | Outpatient (CLI) | payer MEDICARE, OTHER ==
[2020-04-08 19:15] LABS: BILIRUBIN,URINE NEGATIVE (NEGATIVE); GLUCOSE, URINE (UA) NEGATIVE (NEGATIVE); KETONES,URINE (UA) NEGATIVE (NEGATIVE); LEUKOCYTE ESTERASE, URINE LARGE (NEGATIVE); NITRITE,URINE POSITIVE (NEGATIVE); OCCULT BLOOD,URINE TRACE-INTA (NEGATIVE); PROTEIN,URINE TRACE mg/dL (NEGATIVE); UROBILINOGEN,URINE 0.2 (NORMAL) E.U./dL (NORMAL)
[2020-04-08 19:38] LABS: BACTERIA,URINE Many /HPF (None Seen); CLARITY,URINE CLOUDY (CLEAR); RBC,URINE TNTC /HPF (0-5); SQUAMOUS EPITHELIAL CELL,UR RARE Squamous (<= Few)
== END 2020-04-08 23:59 | disposition home or self-care (01) ==
LOC: LAB.WCP 14:13
PROVIDERS: ATTEND Family Medicine
DX: R30.0 Dysuria (principal)
CPT/HCPCS: 81001; 87086; 87181

== ENCOUNTER 2020-04-28 14:10 | Outpatient (CLI) | payer MEDICARE, OTHER ==
[2020-04-28 19:03] LABS: BILIRUBIN,URINE NEGATIVE (NEGATIVE); GLUCOSE, URINE (UA) NEGATIVE (NEGATIVE); KETONES,URINE (UA) NEGATIVE (NEGATIVE); LEUKOCYTE ESTERASE, URINE NEGATIVE (NEGATIVE); NITRITE,URINE NEGATIVE (NEGATIVE); OCCULT BLOOD,URINE NEGATIVE (NEGATIVE); PROTEIN,URINE NEGATIVE (NEGATIVE); UROBILINOGEN,URINE 0.2 (NORMAL) E.U./dL (NORMAL)
[2020-04-28 19:05] LABS: CLARITY,URINE CLEAR (CLEAR)
== END 2020-04-28 23:59 | disposition home or self-care (01) ==
LOC: LAB.R 14:10
PROVIDERS: ATTEND Family Medicine
DX: N39.0 Urinary tract infection, site not specified (principal)
CPT/HCPCS: 81001; 81003; 87086

== ENCOUNTER 2020-05-20 06:50 | Outpatient (CLI) | payer MEDICARE, OTHER ==
--- NOTE | 2020-05-20 11:16 | Ultrasound Report ---
PROCEDURE: Abdomen Limited INDICATIONS: EPIGASTRIC DISCOMFORT TECHNIQUE: Real-time focused scanning was performed of the abdomen, with image documentation. COMPARISON: CT chest 02/06/2019 FINDINGS: The liver is normal in size but is echogenic consistent with fatty infiltration. The gallb ladder appears free of inflammation or gallstones. The adjacent bile ducts are normal in caliber at 4 .7 mm. The pancreas visualized appears normal as does the right kidney which measures up to 10 cm in length and appears free of hydronephrosis and nephrolithiasis. IMPRESSION: Normal limited right upper quadrant ultrasound, no source of current reported epigastric discomfort i s found other than what appears to be fatty infiltration throughout the liver. Reviewed by: Mckinley Lay MD on 05/20/2020 11:14 AM PDT Approved by: Mckinley Lay MD on 05/20/2020 11:14 AM PDT Station ID: [id number]
== END 2020-05-20 06:51 | disposition home or self-care (01) ==
LOC: DI 06:50
PROVIDERS: ATTEND Surgery
DX: R10.13 Epigastric pain (principal); K76.0 Fatty (change of) liver, not elsewhere classified
CPT/HCPCS: 76705

== ENCOUNTER 2022-04-23 08:19 | Emergency (ER) | payer MEDICARE, OTHER ==
[2022-04-23 08:27] VITALS: BP 155/69
[2022-04-23] MEDS ORDERED: FOSFOMYCIN TROMETHAMINE 3 GM PACKET PO STA (08:53)
--- NOTE | 2022-04-23 08:56 | ED Physician Documentation ---
History of Present Illness - Stated complaint Stated Complaint: RT SIDE PX - Chief complaint Chief Complaint: Abd Pain - History obtained from History obtained from: Patient - History of Present Illness Timing: Today Pain level max: 5 Pain level now: 4 - Additonal information Additional information: Patient is a 72-year-old female with a complicated urinary history. 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 Also has reflux in her left ureter. Has been through multiple surgeries. She states that she started developing pain in her right side today. She states that because of the reflux she is very prone to kidney infections. She states that when the symptoms start, they placed her on fosfomycin as she has allergies to multiple antibiotics. No fever. Mild chills. No vomiting. No diarrhea. Nothing makes it better or worse. Review of Systems Constitutional: reports: Chills. 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 : Chronic bladder infection HEENT: None Psych: Depression Musculoskeletal: Chronic back pain Derm: None - Past Surgical History Past Surgical History: Yes General: Appendectomy Ortho: Knee replacement /ASSISTANT CONTROLLER: Hysterectomy HEENT: Tonsil/Adenoidectomy - Present Medications Home Medications: Ambulatory Orders Medication Instructions Recorded Confirmed Atorvastatin Calcium [Lipitor] 20 mg PO HS 05/03/13 08/25/14 Budesonide/Formoterol Fumarate 10.2 gm IH PRN 05/03/13 08/25/14 [Symbicort 160-4.5 Mcg Inhaler] Esomeprazole Magnesium [Nexium] 40 mg PO BID 05/03/13 08/25/14 Levothyroxine [Synthroid] 25 mcg PO QDAC 05/03/13 08/25/14 Montelukast [Singulair] 10 mg PO DAILY 05/03/13 08/25/14 Oxycodone HCl/Acetaminophen 1 each PO DAILY 05/03/13 08/25/14 [Percocet 10-325 mg Tablet] Propranolol [Inderal] 20 mg PO BID 05/03/13 08/25/14 traZODone [Desyrel] 50 mg PO HS 05/03/13 08/25/14 Estrogens, Conjugated [Premarin] 0.625 mg PO DAILY 08/25/14 08/25/14 Lidocaine Viscous 2% [Xylocaine 5 ml PO Q4H PRN #1 bottle 06/26/18 Viscous 2%] Fosfomycin Tromethamine 3 gm PO ONCE #3 packet 04/23/22 - Allergies Allergies/Adverse Reactions: Allergies Allergy/AdvReac Type Severity Reaction Status Date / Time acyclovir sodium * Allergy Severe lips Verified 04/23/22 08:27 [From Zovirax] swollen, face purple codeine [Codeine] Allergy Severe resp Verified 04/23/22 08:27 distress levofloxacin [From Levaquin] Allergy Severe skin Verified 04/23/22 08:27 peeled off Penicillins Allergy Severe throat Verified 04/23/22 08:27 swelling celecoxib [From Celebrex] Allergy Intermediate Rash Verified 04/23/22 08:27 cephalexin monohydrate * Allergy Intermediate Rash Verified 04/23/22 08:27 [From Keflex] hydrocodone [Hydrocodone] Allergy Intermediate Rash Verified 04/23/22 08:27 ciprofloxacin [From Cipro] Allergy Mild Rash Verified 04/23/22 08:27 ciprofloxacin HCl * Allergy Mild Rash Verified 04/23/22 08:27 [From Cipro] morphine AdvReac Headache Verified 04/23/22 08:27 - Social History Does the pt smoke?: No Smoking Status: Never smoker Does the pt drink ETOH?: No Does the pt have substance abuse?: No - Immunizations Immunizations are current?: Yes - POLST Patient has POLST: No PD ED PE NORMAL - Vitals Vital signs reviewed: Yes - General General: Alert and oriented X 3, No acute distress - HEENT HEENT: Moist mucous membranes - Neck Neck: Supple, no meningeal sign - Cardiac Cardiac: RRR, Strong equal pulses - Respiratory Respiratory: No respiratory distress, Clear bilaterally - Abdomen Abdomen: Soft, Non tender, Non distended - Derm Derm: Warm and dry - Neuro Neuro: Alert and oriented X 3 - Psych Psych: Normal mood, Normal affect Results - Vitals Vitals: Vital Signs - 24 hr 04/23/22 08:24 Temperature 36.3 C L Heart Rate 86 Respiratory 16 Rate Blood Pressure 155/69 H O2 Saturation 100 Oxygen O2 Source Room air - Labs Labs: Laboratory Tests 04/23/22 08:56 Urine Color YELLOW Urine Clarity HAZY Urine pH 6.5 Ur Specific [place] 1.010 Urine Protein NEGATIVE Urine Glucose (UA) NEGATIVE Urine Ketones NEGATIVE Urine Occult Blood TRACE-INTA Urine Nitrite POSITIVE H Urine Bilirubin NEGATIVE Urine Urobilinogen 0.2 (NORMAL) Ur Leukocyte Esterase LARGE H Urine RBC 0-5 Urine WBC >25 H Urine WBC Clumps PRESENT Ur Squamous Epith Cells RARE Squamous Urine Bacteria Moderate H Ur Microscopic Review INDICATED Urine Culture Comments INDICATED PD MEDICAL DECISION MAKING - ED course Complexity details: reviewed results, re-evaluated patient, considered differential, d/w patient ED course: Patient with known urinary tract issues, reflux and multiple ureteral surgeries bilaterally. Presents with her usual pain on the right side. No history of kidney stones. A urine was sent for urinalysis and culture. Urinalysis consistent with UTI. We will place her back on her usual fosfomycin and have her follow-up with her doctor for further care. Patient counseled regarding signs and symptoms for which I believe and urgent re-evaluation would be necessary. Patient with good understanding of and agreement to plan and is comfortable going home at this time This document was made in part using voice recognition software. While efforts are made to proofread this document, sound alike and grammatical errors may occur. Patient is well-appearing, nontoxic. Afebrile. Declines any blood work today. Departure - Departure Disposition: 01 Home, Self Care Clinical Impression: UTI (urinary tract infection) Qualifiers: Urinary tract infection type: acute cystitis Hematuria presence: without hematuria Qualified Code(s): N30.00 - Acute cystitis without hematuria Condition: Good Instructions: ED UTI Cystitis Female Follow-Up: your,doctor in 1 week [Other] Prescriptions: Fosfomycin Tromethamine 3 gm PO ONCE #3 packet Comments: Your prescriptions were sent to the [facility] pharmacy. Please take all antibiotics until gone. You will take the 3 g packet every other day. Discharge Date/Time: 04/23/22 09:05
[2022-04-23 09:16] LABS: BILIRUBIN,URINE NEGATIVE (NEGATIVE); GLUCOSE, URINE (UA) NEGATIVE (NEGATIVE); KETONES,URINE (UA) NEGATIVE (NEGATIVE); LEUKOCYTE ESTERASE, URINE LARGE (NEGATIVE); NITRITE,URINE POSITIVE (NEGATIVE); OCCULT BLOOD,URINE TRACE-INTA (NEGATIVE); PH,URINE 6.5 PH (5.0-7.5); PROTEIN,URINE NEGATIVE (NEGATIVE); UROBILINOGEN,URINE 0.2 (NORMAL) E.U./dL (NORMAL)
[2022-04-23 09:26] LABS: CLARITY,URINE HAZY (CLEAR)
[2022-04-23 09:37] LABS: BACTERIA,URINE Moderate /HPF (None Seen); RBC,URINE 0-5 /HPF (0-5); SQUAMOUS EPITHELIAL CELL,UR RARE Squamous (<= Few); WBC CLUMPS,URINE PRESENT; WBC,URINE >25 /HPF (0-5)
== END 2022-04-23 09:05 | disposition home or self-care (01) ==
LOC: ED 08:19
DX: N30.00 Acute cystitis without hematuria (principal)
CPT/HCPCS: 81001; 87086; 87181; 99282; 99283; J8499; 81003

== ENCOUNTER 2024-06-18 13:07 | Outpatient (CLI) | payer OTHER ==
--- NOTE | 2024-06-19 11:00 | DEXA Report ---
PROCEDURE: Dexa Spine and/or Hip INDICATIONS: POST MENOPAUSAL TECHNIQUE: Dual energy x-ray absorptiometry (DXA) was performed on a [employer] System. Regions measur ed are the AP Spine, femoral neck, and if needed forearm. COMPARISON: 12/26/2013. FINDINGS: Lumbar Spine: Bone Mineral Density: 1.310 g/cm/cm,T score: 1.1. Left Femoral Neck: Bone Mineral Density: 0.924 g/cm/cm, T score: -0.8. Left Hip: Bone Mineral Density: 0.967 g/cm/cm,T score: -0.3. Since the most recent prior study, there has been a statistically significant decrease in bone mineral density by 5.5 percent. Left forearm:Bone Mineral Density: 0.837 g/cm/cm,T score: -0.4. Since the most recent prior study, th ere has been a statistically significant decrease in bone mineral density by 6.7 percent. FRAX risk factors: None given. (T score greater or equal to -1.0: NORMAL) (T score from -1.1 to -2.4: OSTEOPENIA) (T score less than or equal to -2.5 to: OSTEOPOROSIS) Impression: By WHO criteria, this patient has normal bone density. Bone mineral density Patients with diagnosis of osteoporosis or osteopenia should have regular bone mineral density assess ment. For those eligible for Medicare, routine testing is allowed once every 2 years. Testing frequ ency can be increased for patients who have rapidly progressing disease or for those who are receivin g medical therapy to restore bone mass. Reviewed by: Cayden Canales MD on 06/19/2024 10:59 AM PDT Approved by: Cayden Canales MD on 06/19/2024 10:59 AM PDT Station ID: [id number]
== END 2024-06-18 13:08 | disposition home or self-care (01) ==
LOC: DI 13:07
PROVIDERS: ATTEND Family Medicine
DX: Z78.0 Asymptomatic menopausal state (principal)